=== PATIENT | female | born 1990 | race Two or more races ===

== ENCOUNTER 2017-12-08 01:52 | Emergency (ER) | payer MEDICAID ==
[~2017-12-08] VITALS: Ht 165.1 cm; Wt 59.0 kg
[2017-12-08 02:14] VITALS: BP 133/79
[2017-12-08 03:19] LABS: Basophils # (auto) 0 uL; Basophils % (auto) 0.5 % (0.0-2.0); Eosinophils # (auto) 0.1 uL; Eosinophils % (auto) 1.2 % (0.0-7.0); Hematocrit 36.1 % (36.0-46.0); Hemoglobin 12.3 g/dL (12.2-16.2); Lymphocytes # (auto) 2.7 uL; Lymphocytes % (auto) 34.1 % (10.0-50.0); Mean Corpuscular Hemoglobin 29.5 pg (28.0-32.0); Mean Corpuscular Volume 86.8 fL (80.0-100.0); Monocytes # (auto) 0.3 uL; Monocytes % (auto) 4.2 % (0.0-12.0); Neutrophils # (auto) 4.7 uL; Platelet Count (auto) 314 10^3/uL (140-450); Red Blood Cells 4.16 10^6/uL (4.0-5.20); Red Cell Distribution Width 12.4 % (11.8-14.3); White Blood Cell 7.8 10^3/uL (4.4-10.8)
[2017-12-08 03:37] LABS: Alanine Aminotransferase 17 U/L (13-56); Albumin 3.9 g/dL (3.4-5.0); Anion Gap 8 (5-15); Aspartate Aminotransferase 11 U/L (15-37); BUN/Creatinine Ratio 17.9; Blood Urea Nitrogen 10 mg/dL (7-18); Calcium 8.2 mg/dL (8.5-10.1); Carbon Dioxide 23 mmol/L (21-32); Chloride 110 mmol/L (98-107); GFR African American 170 mL/min; GFR Non-African American 140 mL/min; Glucose 92 mg/dL (74-106); Magnesium 2.2 mg/dL (1.6-2.6); Potassium 3.6 mmol/L (3.5-5.1); Sodium 141 mmol/L (136-145)
[2017-12-08 03:42] LABS: Alkaline Phosphatase 78 U/L (45-117); Bilirubin, Total 0.2 mg/dL (0.2-1.0)
[2017-12-08 04:21] LABS: Urine Bacteria NONE SEEN /hpf (None Seen); Urine Blood TRACE /uL (Negative); Urine Specific Gravity 1.008 (1.001-1.035); Urine WBC <1 /hpf (0 - 5)
[2017-12-08 04:21] LABS: Urine Pregnacy Test Negative (Negative)
[2017-12-08 04:41] LABS: Alcohol, Urine < 3.0 mg/dL (0-5); Amphetamine Screen, Urine NEGATIVE (NEGATIVE); Barbiturate Scree,Urine NEGATIVE (NEGATIVE); Benzodiazephine Screen, Urine NEGATIVE (NEGATIVE); Cannabinoid Screen, Urine NEGATIVE (NEGATIVE); Cocaine Screen, Urine NEGATIVE (NEGATIVE); Opiate Scree,Urine NEGATIVE (NEGATIVE); Phencyclidine Screen, Urine NEGATIVE (NEGATIVE)
== END 2017-12-08 04:00 | disposition left against medical advice (07) ==
LOC: ER 01:52
DX: R07.9 Chest pain, unspecified (principal); Z53.21 Procedure and treatment not carried out due to patient leaving prior to being seen by health care provider
CPT/HCPCS: 36415; 80053; 80307; 81001; 81025; 83735; 84443; 84484; 85025; 93005

== ENCOUNTER 2021-01-05 17:05 | Emergency (ER) | payer MEDICAID ==
[~2021-01-05] VITALS: Ht 165.1 cm; Wt 63.5 kg
[2021-01-05 18:44] VITALS: BP 118/82
== END 2021-01-05 19:01 | disposition home or self-care (01) ==
LOC: ER 17:05
DX: S51.011D Laceration without foreign body of right elbow, subsequent encounter (principal); W19.XXXD Unspecified fall, subsequent encounter

== ENCOUNTER 2023-01-25 00:39 | Emergency (ER) | payer MEDICAID ==
[~2023-01-25] VITALS: Ht 160 cm; Wt 65.0 kg
[2023-01-25 01:06] VITALS: BP 134/92
== END 2023-01-25 02:54 | disposition left against medical advice (07) ==
LOC: ER 00:39 → EDBD 00:39 → ER 02:54
DX: F41.9 Anxiety disorder, unspecified (principal); Z53.21 Procedure and treatment not carried out due to patient leaving prior to being seen by health care provider

== ENCOUNTER 2023-02-11 09:37 | Emergency (ER) | payer MEDICAID ==
[~2023-02-11] VITALS: Ht 160 cm; Wt 67.0 kg
[2023-02-11] MEDS ORDERED: LORazepam 0.5 MG TAB PO ONE (12:30)
[2023-02-11 12:48] LABS: Basophils # (auto) 0 10 ^3/uL (0-0.2); Basophils % (auto) 0.5 % (0.0-2.0); Eosinophils # (auto) 0 10 ^3/uL (0-0.8); Eosinophils % (auto) 0.8 % (0.0-7.0); Hematocrit 38.4 % (36.0-46.0); Lymphocytes # (auto) 2.2 10 ^3/uL (0.4-5.4); Lymphocytes % (auto) 36.4 % (10.0-50.0); Mean Corpuscular Volume 85.5 fL (80.0-100.0); Monocytes # (auto) 0.3 10 ^3/uL (0-1.3); Monocytes % (auto) 4.2 % (0.0-12.0); Neutrophils # (auto) 3.5 10 ^3/uL (1.6-8.6); Neutrophils % (auto) 58.1 % (37.0-80.0); Nucleated Red Blood Cells % 0.1 %; Red Blood Cells 4.49 10^6/uL (4.0-5.20); Red Cell Distribution Width 12.8 % (11.8-14.3); White Blood Cell 6.1 10^3/uL (4.4-10.8)
[2023-02-11 13:22] LABS: Potassium 3.6 mmol/L (3.5-5.1)
[2023-02-11 13:33] LABS: Albumin 3.8 g/dL (3.4-5.0); BUN/Creatinine Ratio 14.3 (10.0-20.0); Bilirubin, Total 0.4 mg/dL (0.2-1.0); Calcium 8.9 mg/dL (8.5-10.1); Total Protein 7.7 g/dL (6.4-8.2)
[2023-02-11 13:46] LABS: Urine Bacteria NONE SEEN /hpf (None Seen); Urine Blood TRACE /uL (Negative); Urine Specific Gravity 1.003 (1.001-1.035); Urine WBC <1 /hpf (0 - 5)
[2023-02-11 14:11] LABS: Alcohol, Urine < 3.0 mg/dL (0-10); Amphetamine Screen, Urine NEGATIVE (NEGATIVE); Barbiturate Scree,Urine NEGATIVE (NEGATIVE); Benzodiazephine Screen, Urine NEGATIVE (NEGATIVE); Cannabinoid Screen, Urine NEGATIVE (NEGATIVE); Cocaine Screen, Urine NEGATIVE (NEGATIVE); Opiate Scree,Urine NEGATIVE (NEGATIVE); Phencyclidine Screen, Urine NEGATIVE (NEGATIVE)
[2023-02-11] MEDS ORDERED: QUEtiapine FUMARATE 25 MG TAB PO SCH (22:00)
[2023-02-12 06:00] VITALS: BP 133/91
== END 2023-02-12 08:00 | disposition left against medical advice (07) ==
LOC: ER 09:37
DX: R45.851 Suicidal ideations (principal)
CPT/HCPCS: 36415; 80053; 80307; 81001; 85025

== ENCOUNTER 2023-11-08 18:34 | Emergency (ER) | payer MEDICAID ==
[~2023-11-08] VITALS: Ht 167.6 cm; Wt 70.0 kg
[2023-11-08] MEDS ORDERED: LORazepam 0.5 MG TAB PO ONE (19:00)
[2023-11-08] MEDS ORDERED: SODIUM CHLORIDE 0.9% 1,000 ML IVB ONE (19:00)
[2023-11-08] MEDS ORDERED: ASPirin 81 mg TAB PO ONE (19:00)
[2023-11-08 19:33] LABS: Basophils # (auto) 0.1 10 ^3/uL (0-0.2); Basophils % (auto) 0.7 % (0.0-2.0); Eosinophils # (auto) 0 10 ^3/uL (0-0.8); Eosinophils % (auto) 0.2 % (0.0-7.0); Hematocrit 39.3 % (36.0-46.0); Hemoglobin 13.4 g/dL (12.2-16.2); Lymphocytes # (auto) 1.6 10 ^3/uL (0.4-5.4); Mean Corpuscular Hgb Conc. 34.2 g/dL (32.0-36.0); Mean Corpuscular Volume 87.7 fL (80.0-100.0); Monocytes # (auto) 0.3 10 ^3/uL (0-1.3); Neutrophils % (auto) 75.1 % (37.0-80.0); Red Blood Cells 4.49 10^6/uL (4.0-5.20); Red Cell Distribution Width 12.2 % (11.8-14.3)
[2023-11-08 19:49] LABS: Acetaminophen < 2.0 UG/ML (10.0-20.0); Salicylate < 3.0 mg/dL (2.8-20.0)
[2023-11-08 19:50] LABS: Alanine Aminotransferase 10 U/L (7-40); Albumin 4.7 g/dL (3.2-4.8); Alkaline Phosphatase 65 U/L (46-116); Anion Gap 8 (5-15); Aspartate Aminotransferase 16 U/L (13-40); BUN/Creatinine Ratio 9.8 (10.0-20.0); Bilirubin, Total 0.7 mg/dL (0.2-1.0); Blood Alcohol < 3.0 mg/dL (<10); Blood Urea Nitrogen 6 mg/dL (9-23); Calcium 9.4 mg/dL (8.5-10.1); Carbon Dioxide 26 mmol/L (20-30); Chloride 105 mmol/L (98-107); Glucose 96 mg/dL (74-106); Potassium 3.1 mmol/L (3.5-5.1); Sodium 139 mmol/L (136-145); Total Protein 7.5 g/dL (5.7-8.2)
[2023-11-08 20:09] VITALS: BP 127/91; PULSE 83; RESP 16; O2SAT 97
[2023-11-08 20:17] LABS: Magnesium 1.8 mg/dL (1.6-2.6)
[2023-11-09] MEDS ORDERED: POTASSIUM CHL 20 Meq TABLET PO ONE (00:15)
== END 2023-11-10 01:24 | disposition left against medical advice (07) ==
LOC: EDBD 18:34 → ER 18:34
DX: R55 Syncope and collapse (principal); M25.511 Pain in right shoulder
CPT/HCPCS: 36415; 80053; 80320; 80329; 83735; 83880; 84484; 85025; 93005

== ENCOUNTER 2024-04-05 17:42 | Emergency (ER) | payer MEDICAID ==
[~2024-04-05] VITALS: Ht 165.1 cm; Wt 61.6 kg
[2024-04-05 18:16] VITALS: BP 124/62; PULSE 80; RESP 18; TEMP 98.2; O2SAT 99
[2024-04-05] MEDS: diphenhdrAMINE HCL 50 MG/1 ML VL IM ONE (19:03)
[2024-04-05] MEDS: DexAMETHasone SOD PHOS 10MG/1ML VIAL INJ IM ONE (19:03)
== END 2024-04-05 19:09 | disposition home or self-care (01) ==
LOC: ER 17:42
DX: T78.40XA Allergy, unspecified, initial encounter (principal); X58.XXXA Exposure to other specified factors, initial encounter
CPT/HCPCS: 96372; 99284; J1100; J1200

== ENCOUNTER 2024-04-13 18:09 | Emergency (ER) | payer MEDICAID | END 2024-04-13 18:28 | disposition left against medical advice (07) | LOC: ER 18:09 | DX: R21 Rash and other nonspecific skin eruption (principal); Z53.21 Procedure and treatment not carried out due to patient leaving prior to being seen by health care provider ==

== ENCOUNTER 2024-08-23 20:15 | Emergency (ER) | payer MEDICAID ==
[~2024-08-23] VITALS: Ht 165.1 cm; Wt 62.4 kg
--- NOTE | 2024-08-23 20:55 | ED.PDOC ---
Psychiatric HPI Comments 33y F who presents to the ED for chief complaint of anxiety. Pt states she has history of anxiety and states she has been having anxiety episodes more recently. Pt states she also recently started school and states it is adding to her anxiety. Pt states she has been having these episodes where she feels chest pain, palpitations, and feels she cant catch her breath when at school or at home. Pt states she does taking anxiety Meds but states she ran out and states she has refills of her medications which she get tomorrow but states she needs something to hold her over until she can get her refill tomorrow. Pt denies any suicidal or homicidal ideations. Pt otherwise has stable vitals in the ED. Pt denies any other symptoms at this time. Chief Complaint: Anxiety Time Seen by MD: 20:52 Primary Care Provider: NONE Reviewed Notes: Medications, Allergies Information Source: Patient Mode of Arrival: Ambulatory Severity: Able to Care for Self Severity of Pain: None Severity of Mental Status: Mild Severity of Symptoms: Mild Timing: Minutes, Hours Duration: Since onset Prehospital treatment: None Presents with: Anxiety Ingestion: None Circumstance: None Current substance abuse: None Stressors: None History of: Anxiety Quality: None Associated signs and symptoms: Anxiety Past Medical History PAST MEDICAL HISTORY: Anxiety Surgical History: Denies all surgeries SALES ESTIMATOR History: No Pertinent SALES ESTIMATOR History Family History Family History: No family hx of HTN Social History Smoker: Non-Smoker Alcohol: Rarely Drugs: Denies Drug Use Lives In: Home Constitutional: denies: chills, diaphoresis, fatigue, fever, malaise, sweats, weakness, others EENTM: denies: blurred vision, double vision, ear bleeding, ear discharge, ear drainage, ear pain, ear ringing, eye pain, eye redness, hearing loss, mouth pain, mouth swelling, nasal discharge, nose bleeding, nose congestion, nose pain, photophobia, tearing, throat pain, throat swelling, voice changes, others Respiratory: denies: cough, hemoptysis, orthopnea, SOB at rest, shortness of breath, SOB with excertion, stridor, wheezing, others Cardiovascular: denies: chest pain, dizzy spells, diaphoresis, Dyspnea on exertion, edema, irregular heart beat, left arm pain, lightheadedness, palpitations, PND, syncope, others Gastrointestinal: denies: abdomen distended, abdominal pain, blood streaked bowels, constipated, diarrhea, dysphagia, difficulty swallowing, hematemesis, melena, nausea, poor appetite, poor fluid intake, rectal bleeding, rectal pain, vomiting, others Genitourinary: denies: abnormal vagina bleeding, burning, dyspareunia, dysuria, flank pain, frequency, hematuria, incontinence, pain, , vagina discharge, urgency, others Neurological: denies: dizziness, fainting, headache, left sided numbness, left sided weakness, numbness, paresthesia, pre-existing deficit, right sided numbness, right sided weakness, seizure, speech problems, tingling, tremors, weakness, others Musculoskeletal: denies: back pain, gout, joint pain, joint swelling, muscle pain, muscle stiffness, neck pain, others Integumetry: denies: bruises, change in color, change in hair/nails, dryness, laceration, lesions, lumps, rash, wounds, others Allergic/Immunocompromised: denies: Difficulty Healing, Frequent Infections, Hives, Itching, others Hematologic/Lymphatic: denies: anemia, blood clots, easy bleeding, easy bruising, swollen glands, others Endocrine: denies: excessive hunger, excessive sweating, excessive thirst, excessive urination, flushing, intolerance to cold, intolerance to heat, unexplained weight gain, unexplained weight loss, others Psychiatric: reports: anxiety; denies: bipolar disorder, depression, hopeless, panic disorder, schizophrenia, sleepless, suicidal, others All Other Systems: Reviewed and Negative Physical Exam General Appearance: No Apparent Distress HEENT: Normal ENT Inspection, Pharynx Normal, TMs Normal Neck: Full Range of Motion, Non-Tender, Normal, Normal Inspection Respiratory: Chest Non-Tender, Lungs Clear, No Accessory Muscle Use, No Respiratory Distress, Normal Breath Sounds Cardiovascular: No Edema, No JVD, No Murmur, No Gallop, Normal Peripheral Pulses, Regular Rate/Rhythm Breast Exam: Deferred Gastrointestinal: No Organomegaly, Non Tender, No Pulsatile Mass, Normal Bowel Sounds, Soft Genitalia: Deferred Pelvic: Deferred Rectal: Deferred Extremities: No calf tenderness, Normal capillary refill, Normal inspection, Normal range of motion, Non-tender, No pedal edema Musculoskeletal : Apperance: Normal Neurologic: Alert, recoater II-XII nml as Tested, No Motor Deficits, Normal Affect, Normal Mood, No Sensory Deficits Cerebellar Function: Normal Reflexes: Normal Skin: Dry, Normal Color, Warm Lymphatic: No Adenopathy Was a procedure done? Was a procedure done?: No Psych Differential Dx Psych. Differential Dx: Anxiety, Depression, Panic Disorder X-Ray, Labs, Meds, VS Vital Signs Date Time Temp Pulse Resp B/P (MAP) Pulse Ox O2 Delivery O2 Flow Rate FiO2 08/23/24 20:34 97.8 65 20 126/81 (96) 100 The patient was given Xanax 0.5 mg p.o. The patient was being discharged The patient will follow up with the primary care doctor The patient will return to the emergency department's the condition worsens. Time of 1ST Reevaluation: 21:20 Reevaluation 1ST: Unchanged Patient Education/Counseling: Diagnosis, Treatment, Prognosis, Need For Follow Up Family Education/Counseling: Diagnosis, Treatment, Prognosis, Need For Follow Up Departure 1 Departure Time of Disposition: 20:58 Impression: Primary Impression: Acute anxiety Disposition: 01 HOME / SELF CARE / HOMELESS Condition: Fair Discharged With: Self Critical Care Note Critical Care Time?: No Stability Stability form required: No Heart Score Heart Score: Heart Score Response (Comments) Value History N/A 0 EKG N/A 0 Age N/A 0 Risk Factors N/A 0 Troponin N/A 0 Total 0 I personally scribed for JANETTE YAÑEZ MD ([email or web address]) on 08/23/24 at 20:55. Electronically submitted by Steven Munson ([facility]). JANETTE YAÑEZ MD Aug 23, 2024 20:55
[2024-08-23 22:15] VITALS: BP 135/77; TEMP 97.9
[2024-08-23 22:16] VITALS: PULSE 60; RESP 16; O2SAT 98
[2024-08-23] MEDS: ALPRAZolam 0.25 MG TAB PO ONE ×2 (22:27)
== END 2024-08-23 23:05 | disposition home or self-care (01) ==
LOC: ER 20:15
DX: R07.89 Other chest pain (principal); F41.9 Anxiety disorder, unspecified

== ENCOUNTER 2024-08-28 13:37 | Emergency (ER) | payer MEDICAID ==
[~2024-08-28] VITALS: Ht 165.1 cm; Wt 62.1 kg
[2024-08-28 15:59] VITALS: BP 123/81; PULSE 74; RESP 18; O2SAT 100
--- NOTE | 2024-08-28 16:02 | ED.PDOC ---
History of Present Illness HPI Comments A 33 YEAR OLD FEMALE PRESENTS TO THE ED WITH COMPLAINT OF REQUEST FOR DOSE OF ANXIETY MEDICATION. PATIENT STATES SHE HAS A HISTORY OF ANXIETY AND USUALLY TAKES XANAX 0.5 MG MANAGE HER ANXIETY, BUT HAS BEEN UNABLE TO RUG HOOKER HAND HER PRESCRIPTION. PATIENT IS REQUESTING 1 DOSE AND XANAX 0.5 MG HERE IN THE ED TODAY TO MANAGE HER ANXIETY. PATIENT DENIES SI, HI, FEVER, CHILLS, SHORTNESS OF BREATH, CHEST PAIN, ABDOMINAL PAIN, NAUSEA, VOMITING, HEADACHE, OR OTHER COMPLAINTS. NO OTHER SYMPTOMS OR MODIFYING FACTORS AT THIS TIME. PATIENT IS ALERT, ORIENTED X 4, AND HAS STEADY GAIT. Chief Complaint: Anxiety Time Seen by MD: 13:39 Primary Care Provider: UNKNOWN Reviewed Notes: Nurses Notes, Medications, Allergies Allergies: Coded Allergies: NO KNOWN ALLERGIES (Unverified , 11/12/15) Information Source: Patient Mode of Arrival: Ambulatory Severity: Moderate Timing: Days Duration: Since onset, Days Prehospital treatment: None Medication Refill: Ran out of Medication, For: Other (ANXIETY) Past Medical History PAST MEDICAL HISTORY: Anxiety Surgical History: Denies all surgeries CRM DYNAMICS DEVELOPER History: No Pertinent CRM DYNAMICS DEVELOPER History Family History Family History: No family hx of HTN Social History Smoker: Non-Smoker Alcohol: Rarely Drugs: Denies Drug Use Lives In: Home Constitutional: reports: others (ANXIOUS ); denies: chills, diaphoresis, fatigue, fever, malaise, sweats, weakness EENTM: denies: blurred vision, double vision, ear bleeding, ear discharge, ear drainage, ear pain, ear ringing, eye pain, eye redness, hearing loss, mouth pain, mouth swelling, nasal discharge, nose bleeding, nose congestion, nose pain, photophobia, tearing, throat pain, throat swelling, voice changes, others Respiratory: denies: cough, hemoptysis, orthopnea, SOB at rest, shortness of breath, SOB with excertion, stridor, wheezing, others Cardiovascular: denies: chest pain, dizzy spells, diaphoresis, Dyspnea on exertion, edema, irregular heart beat, left arm pain, lightheadedness, palpitations, PND, syncope, others Gastrointestinal: denies: abdomen distended, abdominal pain, blood streaked bowels, constipated, diarrhea, dysphagia, difficulty swallowing, hematemesis, melena, nausea, poor appetite, poor fluid intake, rectal bleeding, rectal pain, vomiting, others Genitourinary: denies: abnormal vagina bleeding, burning, dyspareunia, dysuria, flank pain, frequency, hematuria, incontinence, pain, , vagina discharge, urgency, others Neurological: denies: dizziness, fainting, headache, left sided numbness, left sided weakness, numbness, paresthesia, pre-existing deficit, right sided nu mbness, right sided weakness, seizure, speech problems, tingling, tremors, weakness, others Musculoskeletal: denies: back pain, gout, joint pain, joint swelling, muscle pain, muscle stiffness, neck pain, others Integumetry: denies: bruises, change in color, change in hair/nails, dryness, laceration, lesions, lumps, rash, wounds, others Allergic/Immunocompromised: denies: Difficulty Healing, Frequent Infections, Hives, Itching, others Hematologic/Lymphatic: denies: anemia, blood clots, easy bleeding, easy bruising, swollen glands, others Endocrine: denies: excessive hunger, excessive sweating, excessive thirst, excessive urination, flushing, intolerance to cold, intolerance to heat, unexplained weight gain, unexplained weight loss, others Psychiatric: reports: anxiety; denies: bipolar disorder, depression, hopeless, panic disorder, schizophrenia, sleepless, suicidal, others All Other Systems: Reviewed and Negative Physical Exam General Appearance: No Apparent Distress, Normal, Other (ANXIOUS ) HEENT: Normal ENT Inspection, PERRL/EOMI, Pharynx Normal, TMs Normal Neck: Full Range of Motion, Non-Tender, Normal, Normal Inspection Respiratory: Chest Non-Tender, Lungs Clear, No Accessory Muscle Use, No Respiratory Distress, Normal Breath Sounds Cardiovascular: No Edema, No JVD, No Murmur, No Gallop, Normal Peripheral Pulses, Regular Rate/Rhythm Breast Exam: Deferred Gastrointestinal: No Organomegaly, Non Tender, No Pulsatile Mass, Normal Bowel Sounds, Soft Genitalia: Deferred Pelvic: Deferred Rectal: Deferred Extremities: No calf tenderness, Normal capillary refill, Normal inspection, Normal range of motion, Non-tender, No pedal edema Musculoskeletal : Apperance: Normal Neurologic: Alert, senior accountant II-XII nml as Tested, No Motor Deficits, Normal Affect, Normal Mood, No Sensory Deficits Cerebellar Function: Normal Reflexes: Normal Skin: Dry, Normal Color, Warm Peripheral Pulses: 2+ carotid (R), 2+ carotid (L) Lymphatic: No Adenopathy Was a procedure done? Was a procedure done?: No Differential Dx Considerations may include: ANXIETY, ANXIETY REACTION, MEDICATION ADMINISTERED X-Ray, Labs, Meds, VS Vital Signs Date Time Temp Pulse Resp B/P (MAP) Pulse Ox O2 Delivery O2 Flow Rate FiO2 08/28/24 15:59 64 18 123/81 (95) 100 08/28/24 15:59 74 18 100 Room Air 08/28/24 15:21 98.2 74 18 117/78 (91) 100 Current Medications Medications (Trade) Dose Ordered Sig/Koki Route Start Time Stop Time Status Last Admin Alprazolam (Xanax Tablet) 0.5 mg ONCE ONCE PO 08/28/24 16:15 08/28/24 16:16 DC 08/28/24 16:16 X-Ray, Labs, Meds, VS Comment TREATMENT: XANAX 0.5 MG P.O. Time of 1ST Reevaluation: 16:30 Reevaluation 1ST: Improved Patient Education/Counseling: Diagnosis, Treatment, Need For Follow Up Family Education/Counseling: Diagnosis, Treatment, Need For Follow Up Medical Screening: No EMC Exist At This Time Departure 1 Departure Time of Disposition: 16:30 Impression: Primary Impression: Medication administered Additional Impression: History of anxiety Disposition: 01 HOME / SELF CARE / HOMELESS Condition: Stable Additional Instructions: FOLLOW-UP WITH PCP IN 1 TO 2 DAYS. RETURN TO ED FOR ANY NEW OR WORSENING SYMPTOMS. Discharged With: Self Critical Care Note Critical Care Time?: No Stability Stability form required: No I personally scribed for LEONILA LIM ([email or web address]) on 08/28/24 at 16:02. Electronically submitted by Curtis Ayers ([email or web address]). LEONILA LIM Aug 28, 2024 16:02
[2024-08-28] MEDS: ALPRAZolam 0.5 MG TAB PO ONE (16:16)
== END 2024-08-28 16:20 | disposition home or self-care (01) ==
LOC: ER 13:37
DX: F41.9 Anxiety disorder, unspecified (principal)

== ENCOUNTER 2024-09-01 15:17 | Emergency (ER) | payer MEDICAID ==
[~2024-09-01] VITALS: Ht 165.1 cm; Wt 62.9 kg
--- NOTE | 2024-09-01 17:25 | ED.PDOC ---
History of Present Illness HPI Comments Year old female complaining of anxiety. Patient states she ran out of her anxiety medication alprazolam 0.5 mg. States she was refill scheduled for grain picker tomorrow but she was hoping she would get some assistance today. Patient requesting to single dose today no refill sent to the pharmacy. Chief Complaint: Anxiety Time Seen by MD: 15:29 Primary Care Provider: WALESKA Reviewed Notes: Nurses Notes Allergies: Coded Allergies: NO KNOWN ALLERGIES (Unverified , 11/12/15) Information Source: Patient Mode of Arrival: Ambulatory Past Medical History PAST MEDICAL HISTORY: Anxiety Surgical History: Denies all surgeries WIRE TINNER History: No Pertinent WIRE TINNER History Family History Family History: No family hx of HTN Social History Smoker: Non-Smoker Alcohol: Rarely Drugs: Denies Drug Use Lives In: Home Constitutional: denies: chills, diaphoresis, fatigue, fever, malaise, sweats, weakness, others EENTM: denies: blurred vision, double vision, ear bleeding, ear discharge, ear drainage, ear pain, ear ringing, eye pain, eye redness, hearing loss, mouth pain, mouth swelling, nasal discharge, nose bleeding, nose congestion, nose pain, photophobia, tearing, throat pain, throat swelling, voice changes, others Respiratory: denies: cough, hemoptysis, orthopnea, SOB at rest, shortness of breath, SOB with excertion, stridor, wheezing, others Cardiovascular: denies: chest pain, dizzy spells, diaphoresis, Dyspnea on exertion, edema, irregular heart beat, left arm pain, lightheadedness, palpitations, PND, syncope, others Gastrointestinal: denies: abdomen distended, abdominal pain, blood streaked bowels, constipated, diarrhea, dysphagia, difficulty swallowing, hematemesis, melena, nausea, poor appetite, poor fluid intake, rectal bleeding, rectal pain, vomiting, others Genitourinary: denies: abnormal vagina bleeding, burning, dyspareunia, dysuria, flank pain, frequency, hematuria, incontinence, pain, , vagina discharge, urgency, others Neurological: denies: dizziness, fainting, headache, left sided numbness, left sided weakness, numbness, paresthesia, pre-existing deficit, right sided numbness, right sided weakness, seizure, speech problems, tingling, tremors, weakness, others Musculoskeletal: denies: back pain, gout, joint pain, joint swelling, muscle pain, muscle stiffness, neck pain, others Integumetry: denies: bruises, change in color, change in hair/nails, dryness, laceration, lesions, lumps, rash, wounds, others Allergic/Immunocompromised: denies: Difficulty Healing, Frequent Infections, Hives, Itching, others Hematologic/Lymphatic: denies: anemia, blood clots, easy bleeding, easy bruising, swollen glands, others Endocrine: denies: excessive hunger, excessive sweating, excessive thirst, excessive urination, flushing, intolerance to cold, intolerance to heat, unexplained weight gain, unexplained weight loss, others Psychiatric: reports: anxiety; denies: bipolar disorder, depression, hopeless, panic disorder, schizophrenia, sleepless, suicidal, others Physical Exam General Appearance: No Apparent Distress, Normal HEENT: Normal ENT Inspection, Pharynx Normal, TMs Normal Neck: Full Range of Motion, Non-Tender, Normal, Normal Inspection Respiratory: Chest Non-Tender, Lungs Clear, No Accessory Muscle Use, No Respiratory Distress, Normal Breath Sounds Cardiovascular: No Edema, No JVD, No Murmur, No Gallop, Normal Peripheral Pulses, Regular Rate/Rhythm Breast Exam: Deferred Gastrointestinal: No Organomegaly, Non Tender, No Pulsatile Mass, Normal Bowel Sounds, Soft Genitalia: Deferred Pelvic: Deferred Rectal: Deferred Extremities: No calf tenderness, Normal capillary refill, Normal inspection, Normal range of motion, Non-tender, No pedal edema Musculoskeletal : Apperance: Normal Neurologic: Alert, transmission and protection engineer II-XII nml as Tested, No Motor Deficits, Normal Affect, Normal Mood, No Sensory Deficits Cerebellar Function: Normal Reflexes: Normal Skin: Dry, Normal Color, Warm Lymphatic: No Adenopathy Was a procedure done? Was a procedure done?: No Differential Dx Considerations may include: Medication refill, anxiety, X-Ray, Labs, Meds, VS Vital Signs Date Time Temp Pulse Resp B/P (MAP) Pulse Ox O2 Delivery O2 Flow Rate FiO2 09/01/24 15:25 98.0 79 18 148/97 (114) 98 X-Ray, Labs, Meds, VS Comment Imaging: X-rays and CT scans were reviewed and interpreted by this provider, imaging shows no fractures and no pathological disease. Pending radiology review. Laboratory: Labs reviewed and interpreted by this provider. No significant abnormalities noted. Patient has prior medical visits reviewed. Med reconciliation performed Vital signs reviewed Time of 1ST Reevaluation: 17:24 Reevaluation 1ST: Improved Patient Education/Counseling: Diagnosis, Treatment, Need For Follow Up (Patient advised to follow-up in the emergency room in the next 24 to 48 hours if symptoms do not improve. Advised follow-up with PCP in the next 3 to 5 days. Patient verbalized understanding. ) Family Education/Counseling: Diagnosis, Treatment Departure 1 Departure Time of Disposition: 17:24 Impression: Primary Impression: Acute anxiety Disposition: 01 HOME / SELF CARE / HOMELESS Condition: Fair Discharged With: Self Critical Care Note Critical Care Time?: No Stability Stability form required: No Heart Score Heart Score: Heart Score Response (Comments) Value History N/A 0 EKG N/A 0 Age N/A 0 Risk Factors N/A 0 Troponin N/A 0 Total 0 JENNY RENDON YACHT RIGGER Sep 01, 2024 17:25
[2024-09-01] MEDS: ALPRAZolam 0.5 MG TAB PO ONE (18:01)
[2024-09-01 18:03] VITALS: BP 124/71; PULSE 61; RESP 16; TEMP 97.9; O2SAT 100
== END 2024-09-01 18:25 | disposition home or self-care (01) ==
LOC: ER 15:17
DX: F41.9 Anxiety disorder, unspecified (principal)

== ENCOUNTER 2024-09-03 20:51 | Emergency (ER) | payer MEDICAID ==
[~2024-09-03] VITALS: Ht 165.1 cm; Wt 63.6 kg
[2024-09-03 22:16] VITALS: BP 103/70; PULSE 74; RESP 18; TEMP 98; O2SAT 99
--- NOTE | 2024-09-03 23:07 | ED.PDOC ---
Psychiatric HPI Comments This is a 33-year-old female presents to the ED chief complaint anxiety. Patient states currently takes Xanax 0.25 mg. She states she has not appointment on Saturday with her psychiatrist, she states she had to make it further out due to family issues. She currently ran out recently over the past 3 days states has been trying to be without it. She is requesting a dose today to help her with her current anxiety state. She is currently here with her who will be driving. She denies SI SA SOUSA or HI. Chief Complaint: Anxiety Time Seen by MD: 21:20 Primary Care Provider: Dr. Mckeon Reviewed Notes: Nurses Notes, Medications, Allergies Mode of Arrival: Ambulatory Severity: Able to Care for Self Past Medical History PAST MEDICAL HISTORY: Anxiety Surgical History: Denies all surgeries PAYROLL PROCESSOR History: No Pertinent PAYROLL PROCESSOR History Family History Family History: No family hx of HTN Social History Smoker: Non-Smoker Alcohol: Rarely Drugs: Denies Drug Use Lives In: Home Constitutional: denies: chills, diaphoresis, fatigue, fever, malaise, sweats, weakness, others EENTM: denies: blurred vision, double vision, ear bleeding, ear discharge, ear drainage, ear pain, ear ringing, eye pain, eye redness, hearing loss, mouth pain, mouth swelling, nasal discharge, nose bleeding, nose congestion, nose pain, photophobia, tearing, throat pain, throat swelling, voice changes, others Respiratory: denies: cough, hemoptysis, orthopnea, SOB at rest, shortness of breath, SOB with excertion, stridor, wheezing, others Cardiovascular: denies: chest pain, dizzy spells, diaphoresis, Dyspnea on exertion, edema, irregular heart beat, left arm pain, lightheadedness, palpitations, PND, syncope, others Gastrointestinal: denies: abdomen distended, abdominal pain, blood streaked bowels, constipated, diarrhea, dysphagia, difficulty swallowing, hematemesis, melena, nausea, poor appetite, poor fluid intake, rectal bleeding, rectal pain, vomiting, others Genitourinary: denies: abnormal vagina bleeding, burning, dyspareunia, dysuria, flank pain, frequency, hematuria, incontinence, pain, , vagina discharge, urgency, others Neurological: denies: dizziness, fainting, headache, left sided numbness, left sided weakness, numbness, paresthesia, pre-existing deficit, right sided numbness, right sided weakness, seizure, speech problems, tingling, tremors, weakness, others Musculoskeletal: denies: back pain, gout, joint pain, joint swelling, muscle pain, muscle stiffness, neck pain, others Integumetry: denies: bruises, change in color, change in hair/nails, dryness, laceration, lesions, lumps, rash, wounds, others Allergic/Immunocompromised: denies: Difficulty Healing, Frequent Infections, Hives, Itching, others Hematologic/Lymphatic: denies: anemia, blood clots, easy bleeding, easy bruising, swollen glands, others Psychiatric: reports: anxiety; denies: bipolar disorder, depression, hopeless, panic disorder, schizophrenia, sleepless, suicidal, others Physical Exam General Appearance: No Apparent Distress, Normal HEENT: Normal ENT Inspection, Pharynx Normal, TMs Normal Neck: Full Range of Motion, Non-Tender, Normal, Normal Inspection Respiratory: Chest Non-Tender, Lungs Clear, No Accessory Muscle Use, No Respiratory Distress, Normal Breath Sounds Cardiovascular: No Edema, No JVD, No Murmur, No Gallop, Normal Peripheral Pulses, Regular Rate/Rhythm Breast Exam: Deferred Gastrointestinal: No Organomegaly, Non Tender, No Pulsatile Mass, Normal Bowel Sounds, Soft Genitalia: Deferred Pelvic: Deferred Rectal: Deferred Extremities: Normal capillary refill, Normal inspection, Normal range of motion, Non-tender, No pedal edema Musculoskeletal : Apperance: Normal Neurologic: Alert, green building materials designer II-XII nml as Tested, No Motor Deficits, Normal Affect, Normal Mood, No Sensory Deficits, Other (Appears anxious) Cerebellar Function: Normal Reflexes: Normal Skin: Dry, Normal Color, Warm Lymphatic: No Adenopathy Was a procedure done? Was a procedure done?: No Psych Differential Dx Psych. Differential Dx: Anxiety OD Differential Dx: Anxiety X-Ray, Labs, Meds, VS Vital Signs Date Time Temp Pulse Resp B/P (MAP) Pulse Ox O2 Delivery O2 Flow Rate FiO2 09/03/24 22:16 98.0 74 18 103/70 (81) 99 98.0 09/03/24 22:15 74 18 99 Room Air 09/03/24 20:51 97.8 90 16 141/86 (104) 97 Current Medications Medications (Trade) Dose Ordered Sig/Koki Route Start Time Stop Time Status Last Admin Alprazolam (Xanax Tablet) 0.5 mg ONCE ONCE PO 09/03/24 23:15 09/03/24 23:16 DC 09/03/24 23:22 X-Ray, Labs, Meds, VS Comment Patient given her dose of Xanax. Patient feels less anxious and requesting discharge at this time. Patient is has been brought back to confirm she is not driving. Advised patient to keep her appointment on Saturday for continued refills. Advised to return to the ER for any concerning symptoms as discussed. Patient agrees with discharge plan of care. Time of 1ST Reevaluation: 23:35 Reevaluation 1ST: Improved Patient Education/Counseling: Diagnosis, Treatment, Prognosis, Need For Follow Up Family Education/Counseling: Diagnosis, Treatment, Prognosis, Need For Follow Up Departure 1 Departure Time of Disposition: 23:35 Impression: Primary Impression: Acute anxiety Disposition: 01 HOME / SELF CARE / HOMELESS Condition: Stable Additional Instructions: Follow with your scheduled appointment with your psychiatrist for refills. Discharged With: Spouse Critical Care Note Critical Care Time?: No Stability Stability form required: JO ANN Hauser Sep 03, 2024 23:07
[2024-09-03] MEDS: ALPRAZolam 0.5 MG TAB PO ONE (23:22)
[2024-09-05] MEDS ORDERED: HYDR50TA69 PO (13:38)
== END 2024-09-04 00:11 | disposition home or self-care (01) ==
LOC: ER 20:51
DX: F41.9 Anxiety disorder, unspecified (principal); Z63.9 Problem related to primary support group, unspecified

== ENCOUNTER 2024-09-04 15:12 | Emergency (ER) | payer MEDICAID ==
[~2024-09-04] VITALS: Ht 165.1 cm; Wt 62.1 kg
--- NOTE | 2024-09-04 15:29 | ED.PDOC ---
History of Present Illness HPI Comments A 33 YEAR OLD FEMALE PRESENTS TO THE ED WITH COMPLAINT OF ANXIETY. PATIENT STATES SHE HAS A HISTORY OF ANXIETY AND USUALLY TAKES XANAX 0.5 MG TO MANAGE HER ANXIETY, BUT HAS BEEN UNABLE TO FILL THIS PRESCRIPTION. PATIENT IS REQUESTING 1 PILL OF XANAX 0.5 MG HERE IN THE ED TO MANAGE HER ANXIETY. PATIENT DENIES SI, HI, FEVER, CHILLS, SHORTNESS OF BREATH, CHEST PAIN, ABDOMINAL PAIN, NAUSEA, VOMITING, HEADACHE, OR OTHER COMPLAINTS. NO OTHER SYMPTOMS OR MODIFYING FACTORS AT THIS TIME. PATIENT IS ALERT, ORIENTED X 4, AND HAS STEADY GAIT. Chief Complaint: Anxiety Time Seen by MD: 15:16 Primary Care Provider: Dr. Mckeon Reviewed Notes: Nurses Notes, Medications, Allergies Allergies: Coded Allergies: NO KNOWN ALLERGIES (Unverified , 11/12/15) Information Source: Patient Mode of Arrival: Ambulatory Severity: Moderate Timing: Days Duration: Since onset, Days Prehospital treatment: None Medication Refill: Ran out of Medication, For: Other (ANXIETY) Past Medical History PAST MEDICAL HISTORY: Anxiety Surgical History: Denies all surgeries STUDENT CAREER DEVELOPMENT SPECIALIST History: No Pertinent STUDENT CAREER DEVELOPMENT SPECIALIST History Family History Family History: Reviewed,noncontributory to illness, No family hx of HTN Social History Smoker: Non-Smoker Alcohol: Rarely Drugs: Denies Drug Use Lives In: Home Constitutional: reports: others (ANXIOUS ); denies: chills, diaphoresis, fatigue, fever, malaise, sweats, weakness EENTM: denies: blurred vision, double vision, ear bleeding, ear discharge, ear drainage, ear pain, ear ringing, eye pain, eye redness, hearing loss, mouth pain , mouth swelling, nasal discharge, nose bleeding, nose congestion, nose pain, photophobia, tearing, throat pain, throat swelling, voice changes, others Respiratory: denies: cough, hemoptysis, orthopnea, SOB at rest, shortness of breath, SOB with excertion, stridor, wheezing, others Cardiovascular: denies: chest pain, dizzy spells, diaphoresis, Dyspnea on exertion, edema, irregular heart beat, left arm pain, lightheadedness, palpitations, PND, syncope, others Gastrointestinal: denies: abdomen distended, abdominal pain, blood streaked bowels, constipated, diarrhea, dysphagia, difficulty swallowing, hematemesis, melena, nausea, poor appetite, poor fluid intake, rectal bleeding, rectal pain, vomiting, others Genitourinary: denies: abnormal vagina bleeding, burning, dyspareunia, dysuria, flank pain, frequency, hematuria, incontinence, pain, , vagina discharge, urgency, others Neurological: denies: dizziness, fainting, headache, left sided numbness, left sided weakness, numbness, paresthesia, pre-existing deficit, right sided numbness, right sided weakness, seizure, speech problems, tingling, tremors, weakness, others Musculoskeletal: denies: back pain, gout, joint pain, joint swelling, muscle pain, muscle stiffness, neck pain, others Integumetry: denies: bruises, change in color, change in hair/nails, dryness, laceration, lesions, lumps, rash, wounds, others Allergic/Immunocompromised: denies: Difficulty Healing, Frequent Infections, Hives, Itching, others Hematologic/Lymphatic: denies: anemia, blood clots, easy bleeding, easy bruising, swollen glands, others Endocrine: denies: excessive hunger, excessive sweating, excessive thirst, excessive urination, flushing, intolerance to cold, intolerance to heat, unexplained weight gain, unexplained weight loss, others Psychiatric: reports: anxiety; denies: bipolar disorder, depression, hopeless, panic disorder, schizophrenia, sleepless, suicidal, others All Other Systems: Reviewed and Negative Physical Exam General Appearance: No Apparent Distress, Normal, Other (ANXIOUS ) HEENT: Normal ENT Inspection, PERRL/EOMI, Pharynx Normal, TMs Normal Neck: Full Range of Motion, Non-Tender, Normal, Normal Inspection Respiratory: Chest Non-Tender, Lungs Clear, No Accessory Muscle Use, No Respiratory Distress, Normal Breath Sounds Cardiovascular: No Edema, No JVD, No Murmur, No Gallop, Normal Peripheral Pulses, Regular Rate/Rhythm Breast Exam: Deferred Gastrointestinal: No Organomegaly, Non Tender, No Pulsatile Mass, Normal Bowel Sounds, Soft Genitalia: Deferred Pelvic: Deferred Rectal: Deferred Extremities: No calf tenderness, Normal capillary refill, Normal inspection, Normal range of motion, Non-tender, No pedal edema Musculoskeletal : Apperance: Normal Neurologic: Alert, chute man II-XII nml as Tested, No Motor Deficits, Normal Affect, Normal Mood, No Sensory Deficits Cerebellar Function: Normal Reflexes: Normal Skin: Dry, Normal Color, Warm Peripheral Pulses: 2+ carotid (R), 2+ carotid (L) Lymphatic: No Adenopathy Was a procedure done? Was a procedure done?: No Differential Dx Considerations may include: ANXIETY, ANXIETY REACTION, HYPERVENTILATION SYNDROME X-Ray, Labs, Meds, VS Vital Signs Date Time Temp Pulse Resp B/P (MAP) Pulse Ox O2 Delivery O2 Flow Rate FiO2 09/04/24 15:42 77 18 97 Room Air 09/04/24 15:42 98.6 77 18 133/84 (100) 97 98.6 09/04/24 15:28 98.6 77 18 133/84 (100) 97 Current Medications Medications (Trade) Dose Ordered Sig/Koki Route Start Time Stop Time Status Last Admin Alprazolam (Xanax Tablet) 0.25 mg ONCE ONCE PO 09/04/24 15:30 09/04/24 15:31 DC 09/04/24 15:41 X-Ray, Labs, Meds, VS Comment TREATMENT: XANAX 0.5 MG P.O. Time of 1ST Reevaluation: 16:20 Reevaluation 1ST: Improved Patient Education/Counseling: Diagnosis, Treatment, Need For Follow Up Family Education/Counseling: Diagnosis, Treatment, Need For Follow Up Medical Screening: No EMC Exist At This Time Departure 1 Departure Time of Disposition: 16:20 Impression: Primary Impression: Medication administered Additional Impression: History of anxiety Disposition: 01 HOME / SELF CARE / HOMELESS Condition: Stable Additional Instructions: FOLLOW-UP WITH PCP IN 1 TO 2 DAYS. RETURN TO ED FOR ANY NEW OR WORSENING SYMPTOMS. Discharged With: Self Critical Care Note Critical Care Time?: No Stability Stability form required: No I personally scribed for LEONILA LIM ([email or web address]) on 09/04/24 at 15:29. Electronically submitted by Curtis Ayers ([email or web address]). LEONILA LIM Sep 04, 2024 15:29
[2024-09-04] MEDS: ALPRAZolam 0.25 MG TAB PO ONE (15:41)
[2024-09-04 15:42] VITALS: BP 133/84; PULSE 77; RESP 18; TEMP 98.6; O2SAT 97
[2024-09-05] MEDS ORDERED: HYDR50TA69 PO (13:38)
== END 2024-09-04 16:25 | disposition home or self-care (01) ==
LOC: ER 15:12
DX: F41.9 Anxiety disorder, unspecified (principal); Z79.899 Other long term (current) drug therapy

== ENCOUNTER 2024-09-05 13:00 | Emergency (ER) | payer MEDICAID ==
[~2024-09-05] VITALS: Ht 165.1 cm; Wt 61.4 kg
[2024-09-05] MEDS ORDERED: HYDR50TA69 PO (13:38)
--- NOTE | 2024-09-05 13:39 | ED.PDOC ---
History of Present Illness HPI Comments A 33 YEAR OLD FEMALE PRESENTS TO THE ED WITH COMPLAINT OF ANXIETY. PATIENT STATES SHE HAS A HISTORY OF ANXIETY AND USUALLY TAKES XANAX 0.5 MG TO MANAGE HER ANXIETY, BUT HAS BEEN UNABLE TO FILL THIS PRESCRIPTION. PATIENT IS REQUESTING 1 PILL OF XANAX 0.5 MG HERE IN THE ED TO MANAGE HER ANXIETY. PATIENT DENIES SI, HI, FEVER, CHILLS, SHORTNESS OF BREATH, CHEST PAIN, ABDOMINAL PAIN, NAUSEA, VOMITING, HEADACHE, OR OTHER COMPLAINTS. NO OTHER SYMPTOMS OR MODIFYING FACTORS AT THIS TIME. PATIENT IS ALERT, ORIENTED X 4, AND HAS STEADY GAIT. Chief Complaint: Anxiety Time Seen by MD: 13:19 Primary Care Provider: Dr. Mckeon Reviewed Notes: Nurses Notes, Medications, Allergies Allergies: Coded Allergies: NO KNOWN ALLERGIES (Unverified , 11/12/15) Home Meds Active Scripts Hydroxyzine Hcl (Hydroxyzine Hcl) 50 Mg Tab, 1 TAB PO QPM, #20 TAB Prov:LEONILA LIM 09/05/24 Information Source: Patient Mode of Arrival: Ambulatory Severity: Moderate Timing: Days Duration: Since onset, Days Prehospital treatment: None Medication Refill: For: Other (ANXIETY) Past Medical History PAST MEDICAL HISTORY: Anxiety Surgical History: Denies all surgeries FISH AND GAME CLUB MANAGER History: No Pertinent FISH AND GAME CLUB MANAGER History Family History Family History: Reviewed,noncontributory to illness, No family hx of HTN Social History Smoker: Non-Smoker Alcohol: Rarely Drugs: Denies Drug Use Lives In: Home Constitutional: reports: others (ANXIOUS ); denies: chills, diaphoresis, fatigue, fever, malaise, sweats, weakness EENTM: denies: blurred vision, double vision, ear bleeding, ear discharge, ear drainage, ear pain, ear ringing, eye pain, eye redness, hearing loss, mouth pain, mouth swelling, nasal discharge, nose bleeding, nose congestion, nose pain, photophobia, tearing, throat pain, throat swelling, voice changes, others Respiratory: denies: cough, hemoptysis, orthopnea, SOB at rest, shortness of breath, SOB with excertion, stridor, wheezing, others Cardiovascular: denies: chest pain, dizzy spells, diaphoresis, Dyspnea on exertion, edema, irregular heart beat, left arm pain, lightheadedness, palpitations, PND, syncope, others Gastrointestinal: denies: abdomen distended, abdominal pain, blood streaked bowels, constipated, diarrhea, dysphagia, difficulty swallowing, hematemesis, melena, nausea, poor appetite, poor fluid intake, rectal bleeding, rectal pain, vomiting, others Genitourinary: denies: abnormal vagina bleeding, burning, dyspareunia, dysuria, flank pain, frequency, hematuria, incontinence, pain, , vagina discharge, urgency, others Neurological: denies: dizziness, fainting, headache, left sided numbness, left sided weakness, numbness, paresthesia, pre-existing deficit, right sided numb ness, right sided weakness, seizure, speech problems, tingling, tremors, weakness, others Musculoskeletal: denies: back pain, gout, joint pain, joint swelling, muscle pain, muscle stiffness, neck pain, others Integumetry: denies: bruises, change in color, change in hair/nails, dryness, laceration, lesions, lumps, rash, wounds, others Allergic/Immunocompromised: denies: Difficulty Healing, Frequent Infections, Hives, Itching, others Hematologic/Lymphatic: denies: anemia, blood clots, easy bleeding, easy bruising, swollen glands, others Endocrine: denies: excessive hunger, excessive sweating, excessive thirst, excessive urination, flushing, intolerance to cold, intolerance to heat, unexplained weight gain, unexplained weight loss, others Psychiatric: reports: anxiety; denies: bipolar disorder, depression, hopeless, panic disorder, schizophrenia, sleepless, suicidal, others All Other Systems: Reviewed and Negative Physical Exam General Appearance: No Apparent Distress, Normal, Other (ANXIOUS ) HEENT: Normal ENT Inspection, PERRL/EOMI, Pharynx Normal, TMs Normal Neck: Full Range of Motion, Non-Tender, Normal, Normal Inspection Respiratory: Chest Non-Tender, Lungs Clear, No Accessory Muscle Use, No Respiratory Distress, Normal Breath Sounds Cardiovascular: No Edema, No JVD, No Murmur, No Gallop, Normal Peripheral Pulses, Regular Rate/Rhythm Breast Exam: Deferred Gastrointestinal: No Organomegaly, Non Tender, No Pulsatile Mass, Normal Bowel Sounds, Soft Genitalia: Deferred Pelvic: Deferred Rectal: Deferred Extremities: No calf tenderness, Normal capillary refill, Normal inspection, Normal range of motion, Non-tender, No pedal edema Musculoskeletal : Apperance: Normal Neurologic: Alert, body shop floorperson II-XII nml as Tested, No Motor Deficits, Normal Affect, Normal Mood, No Sensory Deficits Cerebellar Function: Normal Reflexes: Normal Skin: Dry, Normal Color, Warm Peripheral Pulses: 2+ carotid (R), 2+ carotid (L) Lymphatic: No Adenopathy Was a procedure done? Was a procedure done?: No Differential Dx Considerations may include: ANXIETY REACTION, HYPERVENTILATION SYNDROME, MEDICATION ADMINISTERED X-Ray, Labs, Meds, VS Vital Signs Date Time Temp Pulse Resp B/P (MAP) Pulse Ox O2 Delivery O2 Flow Rate FiO2 09/05/24 13:12 97.6 65 18 107/76 (86) 99 X-Ray, Labs, Meds, VS Comment TREATMENT: XANAX 0.5 MG P.O. Time of 1ST Reevaluation: 14:00 Reevaluation 1ST: Improved Patient Education/Counseling: Diagnosis, Treatment, Need For Follow Up Family Education/Counseling: Diagnosis, Treatment, Need For Follow Up Medical Screening: No EMC Exist At This Time Departure 1 Departure Time of Disposition: 14:00 Impression: Primary Impression: Medication administered Additional Impression: History of anxiety Disposition: 01 HOME / SELF CARE / HOMELESS Condition: Stable Additional Instructions: FOLLOW-UP WITH PCP IN 1 TO 2 DAYS. TAKE MEDICATIONS PRESCRIBED. RETURN TO ED FOR ANY NEW OR WORSENING SYMPTOMS. e-Prescriptions Hydroxyzine Hcl (Hydroxyzine Hcl) 50 Mg Tab 1 TAB PO QPM, #20 TAB Prov: LEONILA LIM 09/05/24 Discharged With: Self Critical Care Note Critical Care Time?: No Stability Stability form required: No I personally scribed for LEONILA LIM ([email or web address]) on 09/05/24 at 13:38. Electronically submitted by Curtis Ayers ([email or web address]). LEONILA LIM Sep 05, 2024 13:38
[2024-09-05] MEDS: ALPRAZolam 0.25 MG TAB PO ONE (14:07)
[2024-09-05 14:09] VITALS: BP 110/74; PULSE 71; RESP 17; TEMP 98; O2SAT 97
== END 2024-09-05 14:12 | disposition home or self-care (01) ==
LOC: ER 13:00
DX: F41.9 Anxiety disorder, unspecified (principal)

== ENCOUNTER 2024-09-06 21:35 | Emergency (ER) | payer MEDICAID ==
[~2024-09-06] VITALS: Ht 165.1 cm; Wt 62.3 kg
[~2024-09-06 21:35] MED LIST: HYDR50TA69 PO
--- NOTE | 2024-09-07 00:45 | ED.PDOC ---
Psychiatric HPI Comments This is a 33-year-old female patient presents to the ED chief complaint anxiety. Patient reports history of anxiety currently controlled with Xanax 0.25 mg. She states she ran out has not appointment scheduled for Saturday09/07/2024 in his just requesting 1 time dose tonight. She denies SA, SI, HI, SA or any panic attacks at this time. Chief Complaint: Anxiety Time Seen by MD: 22:57 Primary Care Provider: Dr. Mckeon Reviewed Notes: Nurses Notes, Medications, Allergies Information Source: Patient Mode of Arrival: Ambulatory Past Medical History PAST MEDICAL HISTORY: Anxiety Surgical History: Denies all surgeries STENCIL MAKER History: No Pertinent STENCIL MAKER History Family History Family History: Reviewed,noncontributory to illness, No family hx of HTN Social History Smoker: Non-Smoker Alcohol: Rarely Drugs: Denies Drug Use Lives In: Home Constitutional: denies: chills, diaphoresis, fatigue, fever, malaise, sweats, weakness, others EENTM: denies: blurred vision, double vision, ear bleeding, ear discharge, ear drainage, ear pain, ear ringing, eye pain, eye redness, hearing loss, mouth nash n, mouth swelling, nasal discharge, nose bleeding, nose congestion, nose pain, photophobia, tearing, throat pain, throat swelling, voice changes, others Respiratory: denies: cough, hemoptysis, orthopnea, SOB at rest, shortness of breath, SOB with excertion, stridor, wheezing, others Cardiovascular: denies: chest pain, dizzy spells, diaphoresis, Dyspnea on exertion, edema, irregular heart beat, left arm pain, lightheadedness, palpitations, PND, syncope, others Gastrointestinal: denies: abdomen distended, abdominal pain, blood streaked bowels, constipated, diarrhea, dysphagia, difficulty swallowing, hematemesis, melena, nausea, poor appetite, poor fluid intake, rectal bleeding, rectal pain, vomiting, others Genitourinary: denies: abnormal vagina bleeding, burning, dyspareunia, dysuria, flank pain, frequency, hematuria, incontinence, pain, , vagina discharge, urgency, others Neurological: denies: dizziness, fainting, headache, left sided numbness, left sided weakness, numbness, paresthesia, pre-existing deficit, right sided numbness, right sided weakness, seizure, speech problems, tingling, tremors, weakness, others Musculoskeletal: denies: back pain, gout, joint pain, joint swelling, muscle pain, muscle stiffness, neck pain, others Integumetry: denies: bruises, change in color, change in hair/nails, dryness, laceration, lesions, lumps, rash, wounds, others Allergic/Immunocompromised: denies: Difficulty Healing, Frequent Infections, Hives, Itching, others Hematologic/Lymphatic: denies: anemia, blood clots, easy bleeding, easy bruising, swollen glands, others Endocrine: denies: excessive hunger, excessive sweating, excessive thirst, excessive urination, flushing, intolerance to cold, intolerance to heat, unexplained weight gain, unexplained weight loss, others Psychiatric: reports: anxiety; denies: bipolar disorder, depression, hopeless, panic disorder, schizophrenia, sleepless, suicidal, others Physical Exam General Appearance: No Apparent Distress, Normal HEENT: Pharynx Normal Neck: Full Range of Motion, Non-Tender Respiratory: Lungs Clear, No Respiratory Distress, Normal Breath Sounds Cardiovascular: No Murmur, Normal Peripheral Pulses, Regular Rate/Rhythm Breast Exam: Deferred Gastrointestinal: Non Tender, Soft Genitalia: Deferred Pelvic: Deferred Rectal: Deferred Extremities: Normal inspection, Normal range of motion Musculoskeletal : Apperance: Normal Neurologic: Alert, numerical control machine operator II-XII nml as Tested, No Motor Deficits, Normal Affect, Normal Mood, No Sensory Deficits Cerebellar Function: Normal Reflexes: Normal Skin: Dry, Normal Color, Warm Lymphatic: No Adenopathy Was a procedure done? Was a procedure done?: No Psych Differential Dx Psych. Differential Dx: Anxiety X-Ray, Labs, Meds, VS Vital Signs Date Time Temp Pulse Resp B/P (MAP) Pulse Ox O2 Delivery O2 Flow Rate FiO2 09/07/24 00:50 62 16 100 Room Air 09/07/24 00:50 97.8 62 16 108/67 (81) 100 97.8 09/06/24 22:14 97.9 72 16 118/60 (79) 99 Current Medications Medications (Trade) Dose Ordered Sig/Koki Route Start Time Stop Time Status Last Admin Alprazolam (Xanax Tablet) 0.25 mg ONCE ONCE PO 09/07/24 00:45 09/07/24 00:47 DC 09/07/24 01:14 X-Ray, Labs, Meds, VS Comment Patient to follow up with an appointment tomorrow for her refills of her Xanax. Patient given her 0.25 dose tonight. Currently home with her driving. ER return precautions given. Patient agrees with discharge plan of care. Time of 1ST Reevaluation: 00:45 Reevaluation 1ST: Improved Patient Education/Counseling: Diagnosis, Treatment, Prognosis, Need For Follow Up Family Education/Counseling: Diagnosis, Treatment, Prognosis, Need For Follow Up Departure 1 Departure Time of Disposition: 00:45 Impression: Primary Impression: Acute anxiety Disposition: 01 HOME / SELF CARE / HOMELESS Condition: Stable Discharged With: Spouse Critical Care Note Critical Care Time?: No Stability Stability form required: JO ANN Hauser Sep 07, 2024 00:45
[2024-09-07 00:50] VITALS: BP 108/67; PULSE 62; RESP 16; TEMP 97.8; O2SAT 100
[2024-09-07] MEDS: ALPRAZolam 0.25 MG TAB PO ONE (01:14)
== END 2024-09-07 01:22 | disposition home or self-care (01) ==
LOC: ER 21:35
DX: F41.9 Anxiety disorder, unspecified (principal)

== ENCOUNTER 2024-09-18 11:38 | Emergency (ER) | payer MEDICAID ==
[~2024-09-18] VITALS: Ht 165.1 cm; Wt 61.8 kg
--- NOTE | 2024-09-18 11:57 | ED.PDOC ---
History of Present Illness HPI Comments A 33 YEAR OLD FEMALE PRESENTS TO THE ED WITH COMPLAINT OF ANXIETY. PATIENT STATES SHE HAS A HISTORY OF ANXIETY AND USUALLY TAKES XANAX 0.5 MG TO MANAGE HER ANXIETY, BUT HAS BEEN UNABLE TO FILL THIS PRESCRIPTION. PATIENT IS REQUESTING ONE PILL OF XANAX 0.5 MG HERE IN THE ED TO MANAGE HER ANXIETY. PATIENT DENIES SI, HI, FEVER, CHILLS, SHORTNESS OF BREATH, CHEST PAIN, ABDOMINAL PAIN, NAUSEA, VOMITING, HEADACHE, OR OTHER COMPLAINTS. NO OTHER SYMPTOMS OR MODIFYING FACTORS AT THIS TIME. PATIENT IS ALERT, ORIENTED X 4, AND HAS STEADY GAIT. Chief Complaint: Anxiety Time Seen by MD: 11:40 Primary Care Provider: WAL[place] Reviewed Notes: Nurses Notes, Medications, Allergies Allergies: Coded Allergies: NO KNOWN ALLERGIES (Unverified , 11/12/15) Home Meds Active Scripts Hydroxyzine Hcl (Hydroxyzine Hcl) 50 Mg Tab, 1 TAB PO QPM, #20 TAB Prov:CARINALEONILA HIGH 09/05/24 Information Source: Patient Mode of Arrival: Ambulatory Severity: Moderate Timing: Days Duration: Since onset, Days Prehospital treatment: None Medication Refill: For: Other (ANXIETY) Past Medical History PAST MEDICAL HISTORY: Anxiety Surgical History: Denies all surgeries LEGAL COORDINATOR History: No Pertinent LEGAL COORDINATOR History Family History Family History: Reviewed,noncontributory to illness, No family hx of HTN Social History Smoker: Non-Smoker Alcohol: Rarely Drugs: Denies Drug Use Lives In: Home Constitutional: denies: chills, diaphoresis, fatigue, fever, malaise, sweats, weakness, others EENTM: denies: blurred vision, double vision, ear bleeding, ear discharge, ear drainage, ear pain, ear ringing, eye pain, eye redness, hearing loss, mouth pain, mouth swelling, nasal discharge, nose bleeding, nose congestion, nose pain, photophobia, tearing, throat pain, throat swelling, voice changes, others Respiratory: denies: cough, hemoptysis, orthopnea, SOB at rest, shortness of breath, SOB with excertion, stridor, wheezing, others Cardiovascular: denies: chest pain, dizzy spells, diaphoresis, Dyspnea on exertion, edema, irregular heart beat, left arm pain, lightheadedness, palpitations, PND, syncope, others Gastrointestinal: denies: abdomen distended, abdominal pain, blood streaked bowels, constipated, diarrhea, dysphagia, difficulty swallowing, hematemesis, melena, nausea, poor appetite, poor fluid intake, rectal bleeding, rectal pain, vomiting, others Genitourinary: denies: abnormal vagina bleeding, burning, dyspareunia, dysuria, flank pain, frequency, hematuria, incontinence, pain, , vagina discharge, urgency, others Neurological: denies: dizziness, fainting, headache, left sided numbness, left sided weakness, numbness, paresthesia, pre-existing deficit, right sided numbness, right sided weakness, seizure, speech problems, tingling, tremors, weakness, others Musculoskeletal: denies: back pain, gout, joint pain, joint swelling, muscle pain, muscle stiffness, neck pain, others Integumetry: denies: bruises, change in color, change in hair/nails, dryness, laceration, lesions, lumps, rash, wounds, others Allergic/Immunocompromised: denies: Difficulty Healing, Frequent Infections, Hives, Itching, others Hematologic/Lymphatic: denies: anemia, blood clots, easy bleeding, easy bruising, swollen glands, others Endocrine: denies: excessive hunger, excessive sweating, excessive thirst, excessive urination, flushing, intolerance to cold, intolerance to heat, unexplained weight gain, unexplained weight loss, others Psychiatric: reports: anxiety; denies: bipolar disorder, depression, hopeless, panic disorder, schizophrenia, sleepless, suicidal, others All Other Systems: Reviewed and Negative Physical Exam General Appearance: No Apparent Distress, Normal, Other (ANXIOUS ) HEENT: Normal ENT Inspection, PERRL/EOMI, Pharynx Normal, TMs Normal Neck: Full Range of Motion, Non-Tender, Normal, Normal Inspection Respiratory: Chest Non-Tender, Lungs Clear, No Accessory Muscle Use, No Respiratory Distress, Normal Breath Sounds Cardiovascular: No Edema, No JVD, No Murmur, No Gallop, Normal Peripheral Pulses, Regular Rate/Rhythm Breast Exam: Deferred Gastrointestinal: No Organomegaly, Non Tender, No Pulsatile Mass, Normal Bowel Sounds, Soft Genitalia: Deferred Pelvic: Deferred Rectal: Deferred Extremities: No calf tenderness, Normal capillary refill, Normal inspection, Normal range of motion, Non-tender, No pedal edema Musculoskeletal : Apperance: Normal Neurologic: Alert, therapist physical II-XII nml as Tested, No Motor Deficits, Normal Affect, Normal Mood, No Sensory Deficits Cerebellar Function: Normal Reflexes: Normal Skin: Dry, Normal Color, Warm Peripheral Pulses: 2+ carotid (R), 2+ carotid (L) Lymphatic: No Adenopathy Was a procedure done? Was a procedure done?: No Differential Dx Considerations may include: ANXIETY REACTION, HYPERVENTILATION SYNDROME, MEDICATION ADMINISTERED X-Ray, Labs, Meds, VS Vital Signs Date Time Temp Pulse Resp B/P (MAP) Pulse Ox O2 Delivery O2 Flow Rate FiO2 09/18/24 11:47 99.3 72 16 114/71 (85) 98 X-Ray, Labs, Meds, VS Comment EXTERNAL NOTES: NONE LABS ORDERED: NONE REVIEWED AND INTERPRETED RESULTS: NONE INDEPENDENT HISTORIANS: NONE TREATMENTS ORDERED: XANAX 0.25 MG P.O. PATIENT'S CASE AND RESULTS HAVE BEEN DISCUSSED WITH THE ED ATTENDING PHYSICIAN AND THEY AGREE WITH MY PLAN OF CARE. I HAVE INSTRUCTED THE PATIENT TO FOLLOW UP WITH THEIR PCP IN 1-2 DAYS. THE P ATIENT FULLY UNDERSTANDS THEIR RESULTS AND ARE AWARE THEY NEED TO FOLLOW UP WITH THEIR PCP FOR FURTHER EVALUATION IF THEIR SYMPTOMS PERSIST. Time of 1ST Reevaluation: 12:30 Reevaluation 1ST: Improved Patient Education/Counseling: Diagnosis, Treatment, Need For Follow Up Family Education/Counseling: Diagnosis, Treatment, Need For Follow Up Medical Screening: No EMC Exist At This Time Departure 1 Departure Time of Disposition: 12:30 Impression: Primary Impression: Medication administered Additional Impression: History of anxiety Disposition: 01 HOME / SELF CARE / HOMELESS Condition: Stable Additional Instructions: FOLLOW-UP WITH PCP IN 1 TO 2 DAYS. RETURN TO ED FOR ANY NEW OR WORSENING SYMPTOMS. Discharged With: Self Critical Care Note Critical Care Time?: No Stability Stability form required: No I personally scribed for LEONILA LIM ([email or web address]) on 09/18/24 at 11:57. Electronically submitted by Curtis Ayers ([email or web address]). LEONILA LIM Sep 18, 2024 11:57
[2024-09-18] MEDS: ALPRAZolam 0.25 MG TAB PO ONE (12:19)
[2024-09-18 12:33] VITALS: BP 114/71; PULSE 72; RESP 16; TEMP 99.3; O2SAT 98
== END 2024-09-18 12:39 | disposition home or self-care (01) ==
LOC: ER 11:38
DX: F41.9 Anxiety disorder, unspecified (principal)

== ENCOUNTER 2024-09-22 11:13 | Emergency (ER) | payer MEDICAID ==
[~2024-09-22] VITALS: Ht 165.1 cm; Wt 60.4 kg
--- NOTE | 2024-09-22 12:43 | ED.PDOC ---
Psychiatric HPI Comments 33-year-old female patient presents to the clinic for anxiety. Patient reports that she takes alprazolam daily. Patient has been get him in 20 pills a month by her psychiatrist. Patient reports that her father in March at that she has had increased anxiety since this date. Patient reports that she has been taking alprazolam 0.25 mg since 2014. Patient does follow up with her psychiatrist. Chief Complaint: Anxiety Time Seen by MD: 11:49 Primary Care Provider: WALESKA Mode of Arrival: Ambulatory Past Medical History PAST MEDICAL HISTORY: Anxiety Surgical History: Denies all surgeries PAINT SPECIALIST History: No Pertinent PAINT SPECIALIST History Family History Family History: Reviewed,noncontributory to illness, No family hx of HTN Social History Smoker: Non-Smoker Alcohol: Rarely Drugs: Denies Drug Use Lives In: Home X-Ray, Labs, Meds, VS Vital Signs Date Time Temp Pulse Resp B/P (MAP) Pulse Ox O2 Delivery O2 Flow Rate FiO2 09/22/24 11:44 98.3 73 18 103/57 (72) 98 Departure 1 Departure Time of Disposition: 12:44 Impression: Primary Impression: Acute anxiety Additional Impression: History of anxiety Disposition: HOME / SELF CARE / HOMELESS [place] [employer] Sep 22, 2024 12:43
[2024-09-22 13:30] VITALS: BP 116/76; PULSE 60; RESP 16; TEMP 98.3; O2SAT 97
[2024-09-22] MEDS: ALPRAZolam 0.25 MG TAB PO ONE (14:20)
== END 2024-09-22 14:26 | disposition home or self-care (01) ==
LOC: ER 11:13
DX: F41.9 Anxiety disorder, unspecified (principal); Z79.899 Other long term (current) drug therapy

== ENCOUNTER 2024-09-23 23:00 | Emergency (ER) | payer MEDICAID ==
[~2024-09-23] VITALS: Ht 165.1 cm; Wt 61.8 kg
[2024-09-23 23:13] VITALS: BP 127/84; PULSE 70; RESP 18; O2SAT 99
--- NOTE | 2024-09-23 23:16 | ED.PDOC ---
History of Present Illness HPI Comments anxiety. has takes alprazolam and this is her 10tyh er visit here since nov Chief Complaint: Anxiety Time Seen by MD: 23:10 Primary Care Provider: WALESKA Reviewed Notes: Nurses Notes Allergies: Coded Allergies: NO KNOWN ALLERGIES (Unverified , 11/12/15) Home Meds Active Scripts Hydroxyzine Hcl (Hydroxyzine Hcl) 50 Mg Tab, 1 TAB PO QPM, #20 TAB Prov:LEONILA LIM 09/05/24 Information Source: Patient Mode of Arrival: Ambulatory Severity: Mild Timing: Days Duration: Since onset Medication Refill: Ran out of Medication Past Medical History PAST MEDICAL HISTORY: Anxiety Surgical History: Denies all surgeries PADDOCK JUDGE History: No Pertinent PADDOCK JUDGE History Family History Family History: Reviewed,noncontributory to illness, No family hx of HTN Social History Smoker: Non-Smoker Alcohol: Rarely Drugs: Denies Drug Use Lives In: Home Constitutional: denies: chills, diaphoresis, fatigue, fever, malaise, sweats, weakness, others EENTM: denies: blurred vision, double vision, ear bleeding, ear discharge, ear drainage, ear pain, ear ringing, eye pain, eye redness, hearing loss, mouth pain, mouth swelling, nasal discharge, nose bleeding, nose congestion, nose pain, photophobia, tearing, throat pain, throat swelling, voice changes, others Respiratory: denies: cough, hemoptysis, orthopnea, SOB at rest, shortness of breath, SOB with excertion, stridor, wheezing, others Cardiovascular: denies: chest pain, dizzy spells, diaphoresis, Dyspnea on exertion, edema, irregular heart beat, left arm pain, lightheadedness, palpitations, PND, syncope, others Gastrointestinal: denies: abdomen distended, abdominal pain, blood streaked bowels, constipated, diarrhea, dysphagia, difficulty swallowing, hematemesis, melena, nausea, poor appetite, poor fluid intake, rectal bleeding, rectal pain, vomiting, others Genitourinary: denies: abnormal vagina bleeding, burning, dyspareunia, dysuria, flank pain, frequency, hematuria, incontinence, pain, , vagina discharge, urgency, others Neurological: denies: dizziness, fainting, headache, left sided numbness, left sided weakness, numbness, paresthesia, pre-existing deficit, right sided numbness, right sided weakness, seizure, speech problems, tingling, tremors, weakness, others Musculoskeletal: denies: back pain, gout, joint pain, joint swelling, muscle pain, muscle stiffness, neck pain, others Integumetry: denies: bruises, change in color, change in hair/nails, dryness, laceration, lesions, lumps, rash, wounds, others Allergic/Immunocompromised: denies: Difficulty Healing, Frequent Infections, Hives, Itching, others Hematologic/Lymphatic: denies: anemia, blood clots, easy bleeding, easy bruising, swollen glands, others Endocrine: denies: excessive hunger, excessive sweating, excessive thirst, excessive urination, flushing, intolerance to cold, intolerance to heat, unexplained weight gain, unexplained weight loss, others Psychiatric: reports: anxiety; denies: bipolar disorder, depression, hopeless, panic disorder, schizophrenia, sleepless, suicidal, others All Other Systems: Reviewed and Negative Physical Exam Exam Comments pt appears calm and in no distress or withdrawing General Appearance: No Apparent Distress, Normal HEENT: Normal ENT Inspection, Pharynx Normal, TMs Normal Neck: Full Range of Motion, Non-Tender, Normal, Normal Inspection Respiratory: Chest Non-Tender, Lungs Clear, No Accessory Muscle Use, No Respiratory Distress, Normal Breath Sounds Cardiovascular: No Edema, No JVD, No Murmur, No Gallop, Normal Peripheral Pulses, Regular Rate/Rhythm Breast Exam: Deferred Gastrointestinal: No Organomegaly, Non Tender, No Pulsatile Mass, Normal Bowel Sounds, Soft Genitalia: Deferred Pelvic: Deferred Rectal: Deferred Extremities: No calf tenderness, Normal capillary refill, Normal inspection, Normal range of motion, Non-tender, No pedal edema Musculoskeletal : Apperance: Normal Neurologic: Alert, marketing director assisted living II-XII nml as Tested, No Motor Deficits, Normal Affect, Normal Mood, No Sensory Deficits Cerebellar Function: Normal Reflexes: Normal Skin: Dry, Normal Color, Warm Lymphatic: No Adenopathy Was a procedure done? Was a procedure done?: No Differential Dx Considerations may include: chronic anxiety, panic disorder, benzo addiction, drug seeking behavior Time of 1ST Reevaluation: 23:15 Reevaluation 1ST: Unchanged Patient Education/Counseling: Diagnosis, Treatment, Prognosis, Need For Follow Up Family Education/Counseling: No Family Present Additional Information pt shows no signs of withdrawal. she is encouraged to follow up with her doctor who prescribed her benzo Departure 1 Departure Time of Disposition: 23:15 Impression: Primary Impression: Drug addiction Additional Impression: Chronic anxiety Disposition: 01 HOME / SELF CARE / HOMELESS Condition: Good Discharged With: Self Critical Care Note Critical Care Time?: No Stability Stability form required: KALEE Melendez MD Sep 23, 2024 23:16
== END 2024-09-23 23:15 | disposition home or self-care (01) ==
LOC: ER 23:00
DX: F41.9 Anxiety disorder, unspecified (principal); F19.20 Other psychoactive substance dependence, uncomplicated

== ENCOUNTER 2024-10-27 17:25 | Emergency (ER) | payer MEDICAID ==
[~2024-10-27] VITALS: Ht 165.1 cm; Wt 61.0 kg
[2024-10-27 17:49] VITALS: BP 117/74; PULSE 76; RESP 16; O2SAT 98
== END 2024-10-27 21:48 | disposition left against medical advice (07) ==
LOC: ER 17:25
DX: F41.9 Anxiety disorder, unspecified (principal); Z53.21 Procedure and treatment not carried out due to patient leaving prior to being seen by health care provider

== ENCOUNTER 2025-05-23 14:21 | Emergency (ER) | payer MEDICAID ==
[~2025-05-23] VITALS: Ht 167.6 cm; Wt 68.1 kg
[2025-05-23 14:24] VITALS: BP 114/80; PULSE 69; RESP 18; TEMP 98.7; O2SAT 97
--- NOTE | 2025-05-23 15:41 | ED.PDOC ---
History of Present Illness HPI Comments 34-year-old female came in because she was recently diagnosed with anxiety came in for medication. Patient is anxious. Denies any new symptoms. Chief Complaint: Anxiety Time Seen by MD: 14:56 Primary Care Provider: none Reviewed Notes: Nurses Notes, Medications, Allergies Allergies: Coded Allergies: NO KNOWN ALLERGIES (Unverified , 11/12/15) Home Meds Active Scripts Hydroxyzine Hcl (Hydroxyzine Hcl) 50 Mg Tab, 1 TAB PO QPM, #20 TAB Prov:LEONILA LIM 09/05/24 Information Source: Patient Mode of Arrival: EMS Severity: Mild Timing: Days Duration: Since onset Past Medical History PAST MEDICAL HISTORY: Anxiety Surgical History: Denies all surgeries CHORE WORKER History: No Pertinent CHORE WORKER History Family History Family History: Reviewed,noncontributory to illness, No family hx of HTN Social History Smoker: Non-Smoker Alcohol: Rarely Drugs: Denies Drug Use Lives In: Home Constitutional: denies: chills, diaphoresis, fatigue, fever, malaise, sweats, weakness, others EENTM: denies: blurred vision, double vision, ear bleeding, ear discharge, ear drainage, ear pain, ear ringing, eye pain, eye redness, hearing loss, mouth pain, mouth swelling, nasal discharge, nose bleeding, nose congestion, nose nash n, photophobia, tearing, throat pain, throat swelling, voice changes, others Respiratory: denies: cough, hemoptysis, orthopnea, SOB at rest, shortness of breath, SOB with excertion, stridor, wheezing, others Cardiovascular: denies: chest pain, dizzy spells, diaphoresis, Dyspnea on exertion, edema, irregular heart beat, left arm pain, lightheadedness, palpitations, PND, syncope, others Gastrointestinal: denies: abdomen distended, abdominal pain, blood streaked bowels, constipated, diarrhea, dysphagia, difficulty swallowing, hematemesis, melena, nausea, poor appetite, poor fluid intake, rectal bleeding, rectal pain, vomiting, others Genitourinary: denies: abnormal vagina bleeding, burning, dyspareunia, dysuria, flank pain, frequency, hematuria, incontinence, pain, , vagina discharge, urgency, others Neurological: denies: dizziness, fainting, headache, left sided numbness, left sided weakness, numbness, paresthesia, pre-existing deficit, right sided numbness, right sided weakness, seizure, speech problems, tingling, tremors, weakness, others Musculoskeletal: denies: back pain, gout, joint pain, joint swelling, muscle pain, muscle stiffness, neck pain, others Integumetry: denies: bruises, change in color, change in hair/nails, dryness, laceration, lesions, lumps, rash, wounds, others Allergic/Immunocompromised: denies: Difficulty Healing, Frequent Infections, Hives, Itching, others Hematologic/Lymphatic: denies: anemia, blood clots, easy bleeding, easy bruising, swollen glands, others Endocrine: denies: excessive hunger, excessive sweating, excessive thirst, excessive urination, flushing, intolerance to cold, intolerance to heat, unexplained weight gain, unexplained weight loss, others Psychiatric: reports: anxiety; denies: bipolar disorder, depression, hopeless, panic disorder, schizophrenia, sleepless, suicidal, others Physical Exam General Appearance: Moderate Distress HEENT: Normal ENT Inspection, Pharynx Normal, TMs Normal Neck: Full Range of Motion, Non-Tender, Normal, Normal Inspection Respiratory: Chest Non-Tender, Lungs Clear, No Accessory Muscle Use, No Respiratory Distress, Normal Breath Sounds Cardiovascular: No Edema, No JVD, No Murmur, No Gallop, Normal Peripheral Pulses, Regular Rate/Rhythm Breast Exam: Deferred Gastrointestinal: No Organomegaly, Non Tender, No Pulsatile Mass, Normal Bowel Sounds, Soft Genitalia: Deferred Pelvic: Deferred Rectal: Deferred Extremities: No calf tenderness, Normal capillary refill, Normal inspection, Normal range of motion, Non-tender, No pedal edema Musculoskeletal : Apperance: Normal Neurologic: Alert, project analyst II-XII nml as Tested, No Motor Deficits, Normal Affect, Normal Mood, No Sensory Deficits Cerebellar Function: Normal Reflexes: Normal Skin: Dry, Normal Color, Warm Peripheral Pulses: 3+ Radial (R), 3+ Radial (L) Lymphatic: No Adenopathy Was a procedure done? Was a procedure done?: No Differential Dx Considerations may include: Anxiety X-Ray, Labs, Meds, VS Vital Signs Date Time Temp Pulse Resp B/P (MAP) Pulse Ox O2 Delivery O2 Flow Rate FiO2 05/23/25 14:24 98.7 69 18 114/80 97 98.7 Patient alert. She is anxious. Vitals stable. Answering questions. No sign of distress. Could not find the patient. Called the patient. Continue monitoring. Time of 1ST Reevaluation: 15:39 Reevaluation 1ST: Unchanged Patient Education/Counseling: Diagnosis, Treatment, Prognosis, Need For Follow Up Family Education/Counseling: No Family Present SEPSIS Sepsis Screen Date sepsis recognized/suspect: May 23, 2025 Time Sepsis recognized/suspect: 4 Recent Procedure: No On Antibiotic Therapy: No Respiratory Rate >20: No Heart Rate >90: No Temp<36 C (96.8 F) or >38.3 C: No SBP <90 or MAP <65 mmHG: No New Acute Mental Status Change: No Is the patient on CPAP, BIPAP,: No Vital Signs Date Time Temp Pulse Resp B/P (MAP) Pulse Ox O2 Delivery O2 Flow Rate FiO2 05/23/25 14:24 98.7 69 18 114/80 97 98.7 Departure 1 Departure Time of Disposition: 15:40 Impression: Primary Impression: Acute anxiety Disposition: 07 LEFT AWOL/ELOPED Condition: Good Critical Care Note Critical Care Time?: No Stability Stability form required: No Heart Score Heart Score: Heart Score Response (Comments) Value History N/A 0 EKG N/A 0 Age N/A 0 Risk Factors N/A 0 Troponin N/A 0 Total 0 MICHELA VILLALTA MD May 23, 2025 15:41
== END 2025-05-23 15:35 | disposition left against medical advice (07) ==
LOC: ER 14:21 → EDUNIT# 14:21 → EDBD 14:21 → ER 15:35
DX: F41.9 Anxiety disorder, unspecified (principal)